=== PATIENT | female | born 1955 | race Caucasian/White ===

== ENCOUNTER 2017-07-06 20:20 | Inpatient (IN) | payer OTHER ==
[~2017-07-06] VITALS: Ht 162.6 cm; Wt 104.5 kg
--- NOTE | 2017-07-06 23:58 | NUR ---
RECIEVED PT TO FLOOR FROM ED. PT HELPED TRANSFER SELF TO BED. PT IS ALERT AND ORIENTED AND ABLE TO VERBALIZE NEEDS. IV IS PATENT AND FLUIDS ARE RUNNING FROM ER. PT WILL BE AMBULATORY WITH ASSISTANCE. PT STATES PAIN IS 6/10. DRESSING AND SOFT CAST TO LEFT ARM C/D/I. PT IS ORIENTED TO ROOM AND USE OF CALL LIGHT. NO NEEDS ARE VERBALIZED AT THIS TIME. WILL CONTINUE TO MONITOR. SIDE RAILS ARE UP X 2. BED IS IN LOWEST POSITION. BED ALARM PLACED ON FOR SAFETY. CALL LIGHT IS WITHIN REACH.
--- NOTE | 2017-07-07 01:30 | NUR ---
ADMIT ASSESSMENT COMPLETED. IV FLUIDS TURNED DOWN FROM 75ML/HR TO 50ML/HR PER ORDER. PT REQUESTING PAIN MEDICATION. HAD TO CALL ED AND ASK FOR A DIFFERENT ORDER FOR PAIN MEDICATION. AT THIS TIME PT IS ORDERED MORPHINE THAT IS ON HOLD AND PT IS ALLERGIC TO MORPHINE. ED STATES THEY WILL GET THIS FIXED. WILL MONITOR. SIDE RAILS X 2. BED LOW. BED ALARM ON. CALL LIGHT IN REACH.
[2017-07-07 03:30] VITALS: BP 113/56; Ht 162.6 cm; Wt 104.5 kg
[2017-07-07] MEDS ORDERED: FUROSEMIDE20 MG PO (03:36)
[2017-07-07] MEDS ORDERED: LYRICA100 MG PO (03:36)
[2017-07-07] MEDS ORDERED: GLUCOPHAGE1000 MG PO (03:37)
[2017-07-07] MEDS ORDERED: SYNTHROID50 MCG PO (03:37)
[2017-07-07] MEDS ORDERED: COREG12.5 MG PO (03:37)
[2017-07-07] MEDS ORDERED: MAG-OX 400 MG400 MG PO (03:38)
[2017-07-07] MEDS ORDERED: HUMALOG 30100 UNITS/ SC (03:38)
[2017-07-07] MEDS ORDERED: LEVEMIR100 U/M1 SC (03:38)
[2017-07-07] MEDS ORDERED: DURAGESIC1 PATCH .1 TRANSDERM (03:39)
[2017-07-07] MEDS ORDERED: ELIQUIS5 MG PO (03:39)
[2017-07-07] MEDS ORDERED: PERCOCET 5-3251 TAB PO (03:39)
[2017-07-07] MEDS ORDERED: PEPCID20 MG PO (03:40)
[2017-07-07] MEDS ORDERED: SINGULAIR10 MG PO (03:40)
[2017-07-07 04:00] VITALS: BP 125/64
--- NOTE | 2017-07-07 07:40 | NUR ---
ASSESSMENT COMPLETE. IV TO R AC PATENT. NS INFUSING AT 50 CC/HR VIA PUMP. ICEPACKS IN USE TO L ARM. SCD'S IN USE TO BILAT LEGS. BED ALARM IN USE. SWELLING NOTED TO L ARM. L ARM ELEVATED ON PILLOWS. NPO FOR POSSIBLE SURGERY TODAY.
--- NOTE | 2017-07-07 07:50 | NUR ---
COMPLAINING THAT DEMEROL IVP IS NOT LASTING FOR 6 HOURS. COMMERCIAL HVAC SERVICE TECHNICIAN DEMEROL 10-10-200 SETUP FOR PAIN CONTROL.
[2017-07-07 08:09] VITALS: BP 150/73
[2017-07-07 08:51] LABS: ANION GAP 11.2 mmol/L (8-16); CALCIUM 8.6 mg/dL (8.5-10.1); CARBON DIOXIDE 31.7 mmol/L (21.0-32.0); CREATININE - SERUM 1.1 mg/dL (0.6-1.3); MAGNESIUM - SERUM 1.7 mg/dL (1.8-2.4); POTASSIUM - SERUM 3.9 mmol/L (3.5-5.1)
[2017-07-07 08:52] LABS: APTT 35.5 SECONDS (22.8-39.4); INR 1.07 (0.85-1.17); PROTIME 13.8 SECONDS (11.6-15.0)
[2017-07-07 08:53] LABS: HEMATOCRIT 33.7 % (36.0-48.0); HEMOGLOBIN 10.6 g/dL (12-16); MCHC 31.5 g/dL (31.0-37.0); MCV 85.8 fL (80.0-100.0); MEAN PLATELET VOLUME 9.7 fL (7.4-10.4); RBC 3.93 10x6/uL (4.00-5.40); RDW 15.2 % (11.5-14.5)
--- NOTE | 2017-07-07 11:15 | NUR ---
25 MG BOLUS GIVEN FOR COMPLAINT OF KNEE PAIN.
[2017-07-07 12:51] VITALS: BP 107/63
--- NOTE | 2017-07-07 13:12 | NUR ---
IV INFUSING AT KVO. L ARM ELEVATED ON PILLOWS.
[2017-07-07 15:36] VITALS: BP 123/75
--- NOTE | 2017-07-07 17:00 | NUR ---
COMPLAINING OF BURNING TO L WRIST. CORROSION TECHNICIAN DEMEROL IN USE.
[2017-07-07 20:00] VITALS: BP 158/72
--- NOTE | 2017-07-07 21:55 | NUR ---
REC'D LYING IN BED. RESTING, WOKE UP WHEN I CALLED HER NAME. REPORTED PAIN 04/01. HAS CLINICAL TRIALS NURSE. WILL ADMIN MEDS PRESCRIBED. DENIED NEEDS AT THIS TIME. INSTRUCTED TO CALL IF NEEDED ANYTHING, VERBALIZED UNDERSTANDING. BED LOW, LOCKED, CALL LIGHT IN REACH. NO DISTRESS NOTED. WILL CONT TO MONITOR.
--- NOTE | 2017-07-08 02:00 | NUR ---
PT IN BED WITH NO DISTRESS. RESPIRATIONS EVEN AND UNLABORED. SIDE RAILS X 2. BED IS LOW. CALL LIGHT IN REACH.
[2017-07-08 04:00] VITALS: BP 144/69
[2017-07-08 08:11] VITALS: BP 120/53
--- NOTE | 2017-07-08 11:27 | NUR ---
PT GOT UP FROM BED WITH ASSISTANCE OF RESERVATION CLERK TO RESTROOM AND 2 BAGS OF MEDS WELL A HANDFUL OF MEDS FOUND IN PT BED, ASKED PT ABOUT MEDS IN BAG AND PT STATED COREG SHOULD BE 12.5 AND WE WERE DOUBLING DOSE, ADVISE PT THAT ORDER ON EMAR IS 12.5 WHICH IS WHAT IS GIVEN AND THAT SHE SHOULD NOT BE TAKING HER OWN MEDICINE. TAPED PT'S MEDS TO CHART UNTIL D/C
[2017-07-08 12:45] VITALS: BP 124/41
--- NOTE | 2017-07-08 13:29 | NUR ---
PT NOTE-PT RESTING QUIETLY AT PRESENT. NO NEEDS AT THIS TIME. CALL LIGHT N REACH
[2017-07-08 15:43] VITALS: BP 133/66
[2017-07-08 20:00] VITALS: BP 120/55
--- NOTE | 2017-07-08 21:30 | NUR ---
PATIENT RESTING IN BED WITH NO VISIBLE SIGNS OF DISTRESS. PATIENT REFUSED INSULIN FOR ELEVATED BLOOD SUGAR. ADMINISTERED MEDS PER ORDERS AND COMPLETED ASSESSMENT. BED IN LOWEST POSITION AND CALL LIGHT WITHIN REACH. ENCOURAGED THE PATIENT TO CALL IF SHE HAS NEEDS.
[2017-07-09] VITALS: BP 107/62
--- NOTE | 2017-07-09 02:41 | NUR ---
PT COMPLAINED OF BURNING SENSATION FROM LEFT SHOULDER DOWN TO HAND. PT IN TEARS REQUESTED TORADOL, ADVISED PT TORADOL IS NOT DUE FOR ANOTHER HOUR. PT REQUESTED BOLUS AND FLEXERILL. BED IN LOWEST POSITION, CALL LIGHT IN REACH, WILL MONITOR PT PAIN IN ARM. PT TO HAVE SURGERY 0730
[2017-07-09 04:00] VITALS: BP 90/59
--- NOTE | 2017-07-09 05:45 | NUR ---
WENT TO HAVE PT SIGN CONSENTS AND PT WAS VERY HARD TO WAKE UP, PT WAS VERY JERKY. HAD GIVEN PT A BOLUS AND FLEXERILL AT 0230. PT STARTED WAKING UP AFTER CHARGE NURSE MENTIONED TITI. PT HAD TO REALLY FOCUS ON PAPERWORK TO SEE WHERE TO SIGN, WHILE CHANGING PT AFTER OZZIE HAILE VC FOUND THAT PT HAD A FENTENYL PATCH ON BACKSIDE. PATCH WAS REMOVED, PT ALSO HAD ANOTHER SMALL PILL IN THE BED FOUND BY FINANCIAL MARKET DEALER, MED WAS PLACED IN SHARPS CONTAINER. PT BED IN LOW POSITION, RECONNECTED. PT FINALLY WOKE UP AND ALERT ENOUGH TO UNDERSTAND PAPERWORK AND SIGN CONSENTS
--- NOTE | 2017-07-09 06:44 | NUR ---
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 ASKED [employer] AIDE TEACHER'S AND NURSES TO KEEP AN EYE ON PT AND LINENS
--- NOTE | 2017-07-09 07:45 | NUR ---
PT ASSESSMENT COMPLETE AWAKE AND ALERT ORIENTED X 3 LUNGS CLAER HAS NO DISTRESS NOTED VOICES NEEDS OT STAFF KELECHI WRAP NOTED TO LEFT FORARM NPO FOR ORIF TODAY LEFT WRIST
--- NOTE | 2017-07-09 08:00 | NUR ---
ASSIST UP TO BATHROOM.PT WITHOUT DISTRESS.CALL LIGHT IN REACH
[2017-07-09 08:02] VITALS: BP 158/69
--- NOTE | 2017-07-09 08:30 | NUR ---
PRE OP MEDS GIVEN PER ORDER
--- NOTE | 2017-07-09 09:05 | NUR ---
PT TO OR AT THIS TIME VIA BED WITH TRANSPRT TEAM.
[2017-07-09 11:54] VITALS: BP 107/44
--- NOTE | 2017-07-09 13:00 | NUR ---
PT RETURNED TO ROOM VIA RECOVERY ROOM NURSE PER BED AROUSED TO VERBAL STIMULI. VS WNL SCDS APPLIED
--- NOTE | 2017-07-09 14:14 | CN ---
PATIENT NAME:APARNA FRANKLIN MEDICAL RECORD: [id number] : 51 LOCATION:[id number] ADMIT DATE: 07/06/17 ACCOUNT: [id number] CONSULTING PHYSICIAN: ERNA GILMORE MD REFERRING PHYSICIAN: SUMI CONDON MD DATE OF CONSULTATION: 07/07/2017 DIAGNOSES: 1. Preop evaluation. 2. Wrist fracture. 3. Cardiomyopathy. 4. ICD pacemaker. 5. Paroxysmal atrial fibrillation. HISTORY OF PRESENT ILLNESS: Mrs. Franklin was followed by a drafter electrical in [place]. She has a nonischemic cardiomyopathy, but her last ejection fraction was 45%. She does have a history of congestive heart failure in conjunction with surgery from fluid overload. This was a number of years ago with her shoulder surgery. She has not had any problems in the recent past with congestive heart failure. She does have a history of atrial fibrillation, but only paroxysmal. She was told by her drafter electrical from remote monitoring that she had 1 small episode of atrial fibrillation last week. She is on carvedilol. She is as well on Eliquis. She is in sinus rhythm now. PHYSICAL EXAMINATION: GENERAL APPEARANCE: Well-nourished, well-developed, appears stated age. Level of distress, comfortable. PSYCHIATRIC: Mental status, alert, normal affect. Orientation, oriented to time, place and person. EYES: Lids and conjunctiva, noninjected. No discharge, no pallor. ENT: Lips, teeth, gums, normal dentition. Oropharynx, no cyanosis, no pallor. NECK: Carotid arteries, bilateral normal upstroke, no bruits, no thrills. JUGULAR VEINS: No jugular venous pressure or distention. CERVICAL LYMPH NODES: Nontender, nonenlarged. THYROID: Not enlarged. Nontender. No nodules. LUNGS: Respiratory effort, unlabored. CHEST: Normal curvature. No thoracic deformity. No chest wall tenderness. Percussion, resonant. Auscultation, clear. No wheezes, no rales, no rhonchi. CARDIOVASCULAR: Precordial exam, nondisplaced. No heaves or pericardial thrills. Rate and rhythm, regular. Heart sounds, normal S1, normal S2. No S3, no gallop, no rub. Systolic murmur, not heard. Diastolic murmur, not heard. EXTREMITIES: No cyanosis, no edema. Peripheral pulses, full and equal in all extremities, except as noted. No bruits appreciated. ABDOMEN: Soft, nondistended. Normal aorta. No bruit. Nontender. No masses. Liver, nontender, no hepatomegaly. Spleen, nontender, no splenomegaly. MUSCULOSKELETAL: No joint tenderness. No joint swelling. No erythema. NEUROLOGICAL: Normal gait, normal strength, normal tone. SKIN: Warm and dry. REVIEW OF SYSTEMS: The patient reports easy bruising but reports no swollen glands. The patient reports no fever, no night sweats, no significant weight gain, no significant weight loss. No significant exercise tolerance. The patient reports no dry eyes, no irritation, no vision change. Patient reports no difficulty hearing and no ear pain. Patient reports no frequent nose bleeds or nose and sinus problems. Patient reports on arm pain on exertion. No CONSULT REPORT [id number] APARNA FRANKLIN shortness of breath while lying down. No history of heart murmur. Patient reports no cough, no wheezing or coughing up blood. Patient reports no abdominal pain, no vomiting. Normal appetite. No diarrhea and not vomiting blood. No nausea and no constipation. Patient reports no incontinence. No difficulty urinating. No hematuria. No increased frequency. Patient reports no muscle aches. No weakness, no arthralgias, no back pain. No swelling of the extremities. Patient reports no abnormal mole, no jaundice, no rashes. Reports no loss of consciousness. No weakness and no numbness. No seizures, dizziness, or headaches. The patient reports no depression, no sleep disturbance, feeling safe in a relationship and no alcohol abuse. Patient reports on fatigue. Reports no runny nose or sinus pressure. No itching, no hives, and no frequent sneezing. OVERALL IMPRESSION: 1. Cardiomyopathy, but ejection fraction 45%. No active congestive heart failure, stable from that standpoint. Just make sure that she does not receive a large amount of IV fluids with the operation. 2. Nonischemic cardiomyopathy, stable from that standpoint. 3. Dysrhythmia, atrial fibrillation, paroxysmal. At this time, she is stable from that standpoint. No other cardiac workup treatment is necessary. Proceed with surgical repair of her wrist at low cardiac risk. TRANSINT:[id number] Voice Confirmation ID: [id number] DOCUMENT ID: [id number] ERNA GILMORE MD at 1414 CC: [id number] DICTATION DATE: 07/07/17 0947 VALUATION MANAGER: 07/07/17 1011 ADM IN [id number] [place] [address]
--- NOTE | 2017-07-09 14:23 | NUR ---
PT RESTING WELL NO DISTRESS NOTED AROUSES TO VERBAL STIMULI VS WNL
[2017-07-09 20:00] VITALS: BP 140/68
--- NOTE | 2017-07-09 20:50 | NUR ---
WATCHING TV QUIETLY. NO COMPLAINTS VOICED. KELECHI WRAP INTACT TO LEFT ARM.NO DRAINAGE NOTED. SLING INTACT. RIVER RAFTING GUIDE DILAUDID IN USE FOR PAIN CONTROL. CL IN REACH
[2017-07-10] VITALS: BP 121/44
--- NOTE | 2017-07-10 01:25 | NUR ---
TORADOL GIVEN PER REQUEST FOR COMPLIANTS OF PAIN 01/30. CL IN REACH
--- NOTE | 2017-07-10 03:40 | NUR ---
PT RESTING QUIETLY, EYES CLOSED. RESP EVEN, UNLABORED. NO DISTRESS NOTED. CONTINUE UNDERWRITING SPECIALIST'S PLAN OF CARE.
[2017-07-10 05:11] LABS: HEMATOCRIT 28.4 % (36.0-48.0); HEMOGLOBIN 8.7 g/dL (12-16); MCHC 30.6 g/dL (31.0-37.0); MCV 88.2 fL (80.0-100.0); MEAN PLATELET VOLUME 9.7 fL (7.4-10.4); RBC 3.22 10x6/uL (4.00-5.40); RDW 15.5 % (11.5-14.5); WBC 7.4 10x3/uL (4.8-10.8)
[2017-07-10 05:30] LABS: ANION GAP 9.3 mmol/L (8-16); CALCIUM 8.2 mg/dL (8.5-10.1); CARBON DIOXIDE 29.6 mmol/L (21.0-32.0); CREATININE - SERUM 0.9 mg/dL (0.6-1.3); POTASSIUM - SERUM 3.9 mmol/L (3.5-5.1)
--- NOTE | 2017-07-10 06:10 | NUR ---
AWAKEN FOR MEDS. NO COMPLAINTS OF PAIN. ALL ROUND LOGGER DILAUDID IN USE FOR PAIN CONTROL CL IN REAC
--- NOTE | 2017-07-10 08:00 | NUR ---
ASSESSMENT COMPLETE. IV TO R AC PATENT. NS INFUSING AT 30 CC/HR VIA PUMP. NEWS DEPARTMENT INTERN DILAUDID 0.2-10-4 IN USE FOR PAIN CONTROL. SLING IN USE TO LEFT ARM. KELECHI WRAP DRESSING IN USE TO L ARM. SCD'S IN USE TO BILAT LEGS.
[2017-07-10 09:38] VITALS: BP 143/59
--- NOTE | 2017-07-10 12:00 | NUR ---
NO CHANGES NOTED AT PRESENT.
[2017-07-10 13:41] VITALS: BP 129/83
--- NOTE | 2017-07-10 15:00 | NUR ---
UPSET ABOUT NOT WANTING TO GO HOME TOMORROW. RUBBER WASHER IN USE FOR PAIN CONTROL.
[2017-07-10 15:51] VITALS: BP 130/64
--- NOTE | 2017-07-10 16:44 | NUR ---
TEMP CHECKED PER PATIENT REQUEST. 99.3. IV RETAPED PER PATIENT REQUEST. VISITING WITH FRIEND AT BEDSIDE. NO FURTHER NEEDS VOICED AT THIS TIME.
--- NOTE | 2017-07-10 18:00 | NUR ---
COMPLAINING OF SWELLING TO LEFT ARM. ENCOURAGED TO ELEVATE ON PILLOW.
--- NOTE | 2017-07-10 19:06 | NUR ---
PT IS VISITING WITH FRIEND , STATED HAD A VERY ROUGH DAY AND THAT ARM HAS BEEN HURTING AGAIN, CHECKED BANDAGE AND DRESSING IS C,D AND INTACT. NO SIGNS OF SWELLING OR OBSTRUCTION, WILL CONTINUE TO MONITOR, PT STATED CONCERNED ABOUT GOIG HOME TOMORROW BECAUSE SHE HAS NOT BEEN UP WITH PT YET, ADVISED PT TO EXPRESS CONCERN WITH DOC. NO OTHER NEEDS AT THIS TIME
--- NOTE | 2017-07-10 19:06 | NUR ---
PT IS LYING IN BED, CALL LIGHT IN REACH, INQUIRED ON PAIN MEDS AND NEXT TIME AVAIL, ADVISED PT WILL GOVE WITH 2100 MEDS. NO SIGNS OF DISTRESS NO OTHER NEEDS AT THIS TIME
[2017-07-10 20:00] VITALS: BP 143/90
--- NOTE | 2017-07-10 21:45 | NUR ---
PT IS SITTING UP ON SIDE OF BED WITH GOWN HALF OFF, SLING ON LEFT SHOULDER IS OFF AND IV IS PULLED OUT. PT STATED SHE GOT REALLY HOT AND NEEDED TO USE RESTROOM AND GOT CONFUSED. ASKED GREGORIO HOLLOWAY TO ASSIST IN GETTING PT CLEANED UP AND BACK IN BED, ATTEMPTED TO RESTART PT IV UNSUCCESSFUL TRIES X2, ASKED JAVY HAILE TO ASSIST
--- NOTE | 2017-07-10 23:19 | NUR ---
RESTING IN BED, IV REPLACED TO RIGHT THUMB, DENIES NEEDS, CALL LIGHT IN REACH, SIDE RAILS UP X2, WILL CONTINUE TO MONITOR
[2017-07-11] VITALS: BP 140/82
[2017-07-11 04:00] VITALS: BP 167/69
[2017-07-11 08:15] VITALS: BP 138/63
--- NOTE | 2017-07-11 09:00 | NUR ---
ASSESSMENT COMPLETE. IV TO R THUMB PATENT. NS INFUSING AT KVO VIA PUMP. COORDINATE MEASURING MACHINE PROGRAMMER DILAUDID 0.2-10-4 IN USE FOR PAIN CONTROL.KELECHI WRAP DRESSING TO L ARM. SLING IN USE TO LEFT ARM. DROWSY BUT AWAKENS EASILY TO VERBAL STIMULI. DENIES ANY NEEDS AT THIS TIME.
[2017-07-11 12:41] VITALS: BP 162/78
[2017-07-11] MEDS ORDERED: PERCOCET 10/3251 TA1 PO (13:18)
--- NOTE | 2017-07-11 14:45 | NUR ---
IV REMOVED. CATHETER TIP INTACT. DISCHARGE TEACHING GIVEN TO PATIENT. VOICED UNDERSTANDING. SCRIPT FOR PERCOCET GIVEN TO PATIENT. AWAITING RIDE FROM FRIEND TO DISCHARGE.
--- NOTE | 2017-07-11 16:15 | NUR ---
DC'D HOME WITH FRIEND. ESCORTED TO VEHICLE BY INSURANCE VERIFIER VIA WC WITH BELONGINGS.
--- NOTE | 2017-08-30 16:57 | OP ---
PATIENT NAME: APARNA BARBOUR MEDICAL RECORD: [id number] :51 LOCATION:D[id number] ADMISSION DATE:07/06/17 SURGEON: SUMI CONDON MD DATE OF OPERATION: 07/08/2017 PREOPERATIVE DIAGNOSIS: Comminuted distal radius fracture. POSTOPERATIVE DIAGNOSIS: Comminuted distal radius fracture. PROCEDURE: Open reduction and internal fixation of comminuted distal radius fracture. SURGEON: Sumi Condon MD ANESTHESIA: General. INTRAOPERATIVE COMPLICATIONS: None. SUMMARY OF PATHOLOGIC FINDINGS: The patient had a Colles type fracture with some intra-articular component, which was reduced nicely and was held in place very nicely with a volar plate. OPERATIVE SUMMARY IN DETAIL: After obtaining the appropriate preoperative orthopedic surgery consent as well as anesthetic consultation, evaluation and clearance, the patient was brought to the operating room and placed on the operating table in supine position. After adequate general laryngeal mask was administered, tourniquet was placed about the proximal aspect of the left upper extremity. Left upper extremity was then prepped and draped in routine sterile fashion. The arm was elevated and exsanguinated. Tourniquet inflated to 250 mmHg. Volar Rojas incision was created. A formal carpal tunnel release was performed. This was then taken down to the level of the fracture site itself using the flexor carpal radialis as our landmark while retracting the median nerve gently. Under fluoroscopic guidance, reduction maneuver was performed and then a [place] VariAx plate was then placed in the appropriate position. Serial and sequential drill and fill with a combination of both compression and locking screws resulted in an excellent reduction and anatomic mormon of the patient's distal radius. Having completed this, the wound was copiously irrigated. Radiographs were taken and submitted for final radiologist review. The incision was then closed with 2-0 Vicryl followed by 4-0 Prolene in running fashion. Sterile dressings were applied. The patient was awakened and taken to the recovery room in stable condition. All final needle and sponge counts were correct. TRANSINT:[id number] Voice Confirmation ID: [id number] DOCUMENT ID: [id number] SUMI CONDON MD at 1657 CC: [id number] DICTATION DATE: 08/27/17 1513 HEARING AID MECHANIC: 08/27/17 1552 DIS IN 11/19/17 [facility] [address] [place] [address]
== END 2017-07-11 16:15 | disposition home or self-care (01) | DRG 511 ==
LOC: D.ER 20:20 → D.MS 22:22
PROVIDERS: ADMIT Orthopaedic Surgery
PROC: 2W3DX1Z Immobilization of Left Lower Arm using Splint (ICD-10-PCS; principal; 2017-07-06)
PROC: 0PSJ04Z Reposition Left Radius with Internal Fixation Device, Open Approach (ICD-10-PCS; 2017-07-09)
DX: S52.592A Other fractures of lower end of left radius, initial encounter for closed fracture (principal); I42.9 Cardiomyopathy, unspecified; W10.9XXA Fall (on) (from) unspecified stairs and steps, initial encounter; E11.9 Type 2 diabetes mellitus without complications; I48.0 Paroxysmal atrial fibrillation; K21.9 Gastro-esophageal reflux disease without esophagitis; E03.9 Hypothyroidism, unspecified; Z95.0 Presence of cardiac pacemaker